=== PATIENT | male | born 1990 | race Caucasian/White ===

== ENCOUNTER 2017-05-09 15:19 | Emergency (ER) | payer BC, OTHER ==
--- NOTE | 2017-05-09 15:38 | EDM.PDOC ---
ED HPI GENERAL MEDICAL PROBLEM - General Chief Complaint: Abdominal Pain Stated Complaint: abdominal pain Time Seen by Provider: 05/09/17 15:20 Source of Information: Reports: Patient History Limitations: Reports: No Limitations - History of Present Illness INITIAL COMMENTS - FREE TEXT/NARRATIVE: 26 YO WM presents to ER from clinic complaining of sudden onset severe epigastric abdominal pain. Pt reports associated vomiting and feeling as if he needs to have a bowel movement. Pt reports he immediately went to clinic after episode where they gave him toradol and sent him to ER for further evaluation. Pt is currently without pain or nausea. Pt denies any fever/chills. Pt denies any chest pain or shortness of breath. Pt denies any previous similar episodes Onset: Sudden Duration: Hour(s): (1) Location: Reports: Abdomen Quality: Reports: Stabbing Severity: Severe Improves with: Reports: Other (defecation ) Worsens with: Reports: None Associated Symptoms: Reports: No Other Symptoms, Nausea/Vomiting - Related Data Allergies Allergy/AdvReac Type Severity Reaction Status Date / Time No Known Drug Allergies Allergy Unknown Other Verified 05/09/17 15:45 Home Meds: Home Meds . [No Known Home Meds] 05/09/17 [History] ED ROS GENERAL - Review of Systems Review Of Systems: See Below Constitutional: Reports: No Symptoms HEENT: Reports: No Symptoms Respiratory: Reports: No Symptoms Cardiovascular: Reports: No Symptoms Endocrine: Reports: No Symptoms GI/Abdominal: Reports: Abdominal Pain, Vomiting : Reports: No Symptoms Musculoskeletal: Reports: No Symptoms Skin: Reports: No Symptoms Neurological: Reports: No Symptoms Psychiatric: Reports: No Symptoms Hematologic/Lymphatic: Reports: No Symptoms Immunologic: Reports: No Symptoms ED EXAM, GI/ABD - Physical Exam Exam: See Below Exam Limited By: No Limitations General Appearance: Alert, WD/WN, No Apparent Distress Throat/Mouth: Normal Inspection, Normal Lips, Normal Teeth, Normal Gums, Normal Oropharynx, Normal Voice, No Airway Compromise Head: Atraumatic, Normocephalic Neck: Normal Inspection, Supple, Non-Tender, Full Range of Motion Respiratory/Chest: No Respiratory Distress, Lungs Clear, Normal Breath Sounds, No Accessory Muscle Use, Chest Non-Tender Cardiovascular: Normal Peripheral Pulses, Regular Rate, Rhythm, No Edema, No Gallop, No JVD, No Murmur, No Rub GI/Abdominal Exam: Normal Bowel Sounds, Soft, Non-Tender, No Organomegaly, No Distention, No Abnormal Bruit, No Mass, Pelvis Stable Back Exam: Normal Inspection, Full Range of Motion, NT Extremities: Normal Inspection, Normal Range of Motion, Non-Tender, Normal Capillary Refill, No Pedal Edema Neurological: Alert, Oriented, CN II-XII Intact, Normal Cognition, Normal Gait, Normal Reflexes, No Motor/Sensory Deficits Psychiatric: Normal Affect, Normal Mood Skin Exam: Warm, Dry, Intact, Normal Color, No Rash Lymphatic: No Adenopathy Course - Vital Signs Last Recorded V/S: Last Vital Signs Temp 37.1 C 05/09/17 15:20 Pulse 80 05/09/17 15:20 Resp 16 05/09/17 15:20 BP 117/50 L 05/09/17 15:20 Pulse Ox 98 05/09/17 15:20 - Orders/Labs/Meds Orders: Active Orders 24 hr Category Date Time Status Abdomen Pelvis w Cont [CT] Stat Exams 05/09/17 15:24 Ordered UA W/MICROSCOPIC [URIN] Stat Lab 05/09/17 15:24 Uncollected Sodium Chloride 0.9% [Normal Saline] 1,000 ml Med 05/09/17 16:06 Active IV .BOLUS Medication Orders Sodium Chloride (Normal Saline) 1,000 mls @ 999 mls/hr IV .BOLUS ONE Stop: 05/09/17 17:06 Last Admin: 05/09/17 16:09 Dose: 999 mls/hr Labs: Laboratory Tests 05/09/17 05/09/17 Range/Units 15:37 15:37 WBC 8.9 (5.0-10.0) 10^3/uL RBC 4.49 L (4.50-6.00) 10^6/uL Hgb 15.1 (13.0-17.0) g/dL Hct 44.2 (40.0-52.0) % MCV 98.6 H (82.0-92.0) fL MCH 33.6 H (27.0-31.0) pg MCHC 34.1 (32.0-36.0) g/dL RDW 11.1 L (11.5-14.5) % Plt Count 188 (150-300) 10^3/uL MPV 8.8 (7.4-10.4) fL Neut % (Auto) 79.0 H (50.0-70.0) % Lymph % (Auto) 13.7 L (20.0-40.0) % Emery % (Auto) 6.5 (2.0-8.0) % Eos % (Auto) 0.8 L (1.0-3.0) % Baso % (Auto) 0.0 (0.0-1.0) % Neut # (Auto) 7.0 (2.5-7.0) 10^3/uL Lymph # (Auto) 1.2 (1.0-4.0) 10^3/uL Emery # (Auto) 0.6 (0.1-0.8) 10^3/uL Eos # (Auto) 0.1 (0.1-0.3) 10^3/uL Baso # (Auto) 0.0 (0.0-0.1) 10^3/uL Sodium 140 (136-145) mmol/L Potassium 3.8 (3.3-5.3) mmol/L Chloride 102 (98-115) mmol/L Carbon Dioxide 28.4 (21.0-32.0) mmol/L BUN 15 (6-25) mg/dL Creatinine 0.92 (0.51-1.17) mg/dL Est Cr Clr Drug Dosing TNP Estimated GFR (MDRD) > 60 mL/min Glucose 82 (70-110) mg/dL Calcium 9.4 (8.7-10.3) mg/dL Total Bilirubin 1.8 H (0.2-1.0) mg/dL AST 31 (15-37) U/L ALT 71 (12-78) U/L Alkaline Phosphatase 66 (46-116) IU/L Total Protein 7.7 (6.4-8.2) g/dL Albumin 4.27 (3.00-4.80) g/dL Lipase 222 (73-393) U/L Meds: Medications Generic Name Dose Route Start Last Admin Trade Name Freq PRN Reason Stop Dose Admin Sodium Chloride 1,000 mls @ 999 mls/hr 05/09/17 16:06 05/09/17 16:09 Normal Saline IV 05/09/17 17:06 999 mls/hr .BOLUS ONE Administration Departure - Departure Time of Disposition: 16:44 Disposition: Home, Self-Care 01 Condition: Good Clinical Impression: Abdominal pain Qualifiers: Abdominal location: epigastric Qualified Code(s): R10.13 - Epigastric pain - Discharge Information Instructions: Abdominal Pain, Adult, [id number] Referrals: PCP,None [Primary Care Provider] - Pal Galeana PA-C [Physician Imagery Analyst] - Forms: ED Department Discharge - My Orders Last 24 Hours: My Active Orders 05/09/17 15:24 Abdomen Pelvis w Cont [CT] Stat UA W/MICROSCOPIC [URIN] Stat 05/09/17 16:06 Sodium Chloride 0.9% [Normal Saline] 1,000 ml IV .BOLUS - Assessment/Plan Last 24 Hours: My Active Orders 05/09/17 15:24 Abdomen Pelvis w Cont [CT] Stat UA W/MICROSCOPIC [URIN] Stat 05/09/17 16:06 Sodium Chloride 0.9% [Normal Saline] 1,000 ml IV .BOLUS Assessment:: 1. abdominal pain- resolved Plan: 1. pt refusing CT abd/pelvis due to cost and the fact he is currently painfree and symptom free. Pt understands risk of custodial disability and worsening prognosis including . Pt is alert and oriented x 4 and of sound mind 2. Pt to be discharged home 3. return to clinic next 24-48 hours for further evaluation and treatment
[2017-05-09] MEDS ORDERED: Sodium Chloride 0.9% 1,000 ML IV ONE (16:06)
[2017-05-09 16:07] LABS: CHLORIDE,CL 102 mmol/L (98-115); SODIUM,NA 140 mmol/L (136-145)
== END 2017-05-09 17:20 | disposition home or self-care (01) ==
LOC: KA.ED 15:19
DX: R10.13 Epigastric pain (principal)
CPT/HCPCS: 80053; 81001; 83690; 85025; 96360; 99284; J7030